=== PATIENT | female | born 1980 | race Caucasian/White ===

== ENCOUNTER 2020-08-08 22:26 | Emergency (ER) | payer BC, MEDICAID, SELFPAY ==
[2020-08-08 22:32] VITALS: BP 136/90; PULSE 90; RESP 16; TEMP 36.4; O2SAT 99; BMI 28.0
--- NOTE | 2020-08-08 22:52 | ED_ITS ---
HPI - Back Pain/Injury General: Chief Complaint: Back Pain/Injury Stated Complaint: mid/low back pain Time Seen by Provider: 08/08/20 22:39 History of Present Illness: HPI Narrative: Patient is a 39-year-old female who comes to the ED with epigastric and right upper quadrant abdominal pain with nausea and thoracic back pain. Patient is a past medical history of degenerative disc disease in the thoracic spine. She describes having worsening back pain for the past couple weeks. Pain in the epigastric and right upper quadrant of the abdomen started about 5 days ago. She says pain radiates up into the chest. She describes pain as sharp and she rates it a 10 out of 10. She states she is also had nausea and decreased appetite since onset of epigastric and right upper quadrant abdominal pain. Patient contacted her PCP about her back pain and they recommended she gets further evaluation at the ED. patient says she did start taking a steroid for her back pain a couple days ago. Patient says her PCP is currently in the process of setting up referrals to pain management clinic, neurosurgery and MRI of spine. Associated symptoms: Reports abdominal pain (RUQ and epigastric) and nausea; Deny chills, dysuria, fatigue, fever(s), hematuria or vomiting Review of Systems Const: Reports: change in appetite (decreased); Denies: fever(s), chills or fatigue Eyes: Denies: change in vision or eye discomfort ENMT: Denies: throat pain, odynophagia, nasal discharge or nasal congestion Card: Denies: chest pain, palpitations, edema, swelling of feet/ankles, dyspnea on exertion or orthopnea Resp: Denies: dyspnea, productive cough or non-productive cough GI: Reports: abdominal pain (RUQ and epigastric) and nausea; Denies: vomiting, diarrhea, constipation or hematochezia : Denies: flank pain, dysuria or hematuria Musc: Reports: back pain (thoracic back pain); Denies: neck pain or extremity swelling Skin/Breast: Denies: rash or new lesions Neuro: Denies: headache(s), numbness in extremities or weakness in extremities Physical Exam Const: COMMON NORMALS: patient oriented x3 and alert GENERAL APPEARANCE: cooperative; not comfortable (Patient appears uncomfortable and in pain.) HENMT: COMMON NORMALS: normocephalic HEAD & SCALP: normocephalic MOUTH: Normal oral and palatal mucosa present THROAT: posterior oropharynx normal and uvula midline Eye: COMMON NORMALS: Equal, round and reactive pupils present PUPIL: Yes Equal, round and reactive pupils present Neck/C-Spine: COMMON NORMALS: supple GENERAL: Yes normal visual inspection Resp: COMMON NORMALS: normal respiratory effort, No retractions, No use of accessory muscles and clear to auscultation bilaterally AUSCULTATION: clear to auscultation bilaterally Cardio: COMMON NORMALS: regular rate, regular rhythm, S1 normal heart sound present, S2 normal heart sound present, No gallops present (Cardio), No clicks present (Cardio), No murmurs present (Cardio) and Peripheral pulses 2+ throughout RATE: regular rate RHYTHM: regular rhythm HEART SOUNDS: S1 normal heart sound present and S2 normal heart sound present PERIPHERAL PULSES: Peripheral pulses 2+ throughout GI: COMMON NORMALS: Normal to inspection, nondistended, normoactive bowel sounds present, Soft to palpation and no masses PALPATION: Yes Soft to palpation and Yes Tenderness to palpation present (GI) Details: RUQ (positive sears sign) and other (Epigastric tenderness) : COMMON NORMALS: Yes no CVA tenderness BLADDER/KIDNEY EXAM: Yes no CVA tenderness Back/Pelvis: COMMON NORMALS: no CVA tenderness THORACIC SPINE/UPPER BACK: Yes thoracic spinal tenderness and Yes paraspinal muscle tenderness Extremity: COMMON NORMALS: normal to inspection and no pedal edema Neuro: COMMON NORMALS: patient oriented x3 and moves all extremities SENSORIUM/ORIENTATION: Yes alert Skin: GENERAL SKIN EXAM: dry skin Course Reevaluation(s): Reevaluation #1: Patient says the morphine helped her pain a little bit but now it is coming back again. Her nausea has greatly improved with Zofran. I told patient I will give her a dose of Dilaudid and see how that helps with pain. Patient agreed with plan. Time: 00:25 Reevaluation #2: I told patient about the positive H. pylori test. She said she is does not have any history of gastric ulcers and has never been tested or been diagnosed in the past with H. pylori. I told her I be putting her own a couple medications to treat H. pylori. Vital Signs: Vital signs: Vital Signs Temperature 98.3 F 08/09/20 02:41 Pulse Rate 78 11/06/20 02:41 Respiratory Rate 18 08/09/20 02:41 Blood Pressure 120/74 08/09/20 02:41 Pulse Oximetry 97 08/09/20 02:41 MDM - Back Pain/Injury MDM Narrative: Medical decision making narrative: Patient is a 39-year-old female who comes to the ED with epigastric pain and back pain. Patient says she has a history of thoracic back pain and is currently in the process of being set up with pain management clinic and MRI imaging of spine by her PCP. Exam shows patient that is healthy and does not appear in any acute distress. She did have some epigastric and right upper quadrant tenderness and positive Sears sign. Patient's white blood cell count 13.6, but she did start taking steroid couple days ago for her back. The rest of the CBC and CMP were unremarkable. Troponin negative and EKG showed normal sinus rhythm with no ST segment elevation or depression seen. Ultrasound of the gallbladder was normal. CT of thoracic spine showed no acute findings. Patient did have positive H. pylori test. Patient was discharged and diagnosed with epigastric abdominal pain Helicobacter pylori antibody test positive. She was sent with a prescription for clarithromycin, metronidazole, omeprazole and bismuth subsalicylate. She was also given a prescription of Zofran for any nausea. Follow-up with PCP in 7 to 10 days and return to ED precautions given. Patient understood and agreed with plan. Lab Data: Attestation: I reviewed the patient's lab results. Labs: Lab Results 08/08/20 08/08/20 08/08/20 Range/Units 22:52 23:45 23:45 WBC 13.6 H (4.0-10.0) 10^3/ uL RBC 4.59 (4.1-5.3) 10^6/u L Hgb 14.2 (11.5-15.3) g/dL Hct 43.4 (37.0-47.0) % MCV 94.6 (81-99) fL MCH 30.9 (28.0-34.0) pg MCHC 32.7 (30.0-36.0) g/dL RDW 13.5 (12.1-15.1) % Plt Count 426 H (130-400) 10^3/c mm MPV 9.4 (7.4-10.4) fL Neut % (Auto) 73.3 % Lymph % (Auto) 19.1 % Gladwin % (Auto) 6.7 % Eos % (Auto) 0.1 % Baso % (Auto) 0.2 % Neut # (Auto) 10.01 H (1.8-7.7) 10^3/u L Lymph # (Auto) 2.6 (0.8-4.8) 10^3/u L Gladwin # (Auto) 0.9 (0.2-0.9) 10^3/u L Eos # (Auto) 0.0 (0.0-0.8) 10^3/u L Baso # (Auto) 0.0 (0.0-0.1) 10^3/u L Nucleated RBC % (a uto) 0 % Nucleated RBCs # 0.0 /100WBC Sodium 137 (136-145) mmol/L Potassium 4.2 (3.5-5.1) mmol/L Chloride 104 (98-107) mmol/L Carbon Dioxide 21 L (22-29) mmol/L Anion Gap 16.2 (5-19) BUN 11 (6-20) mg/dL Creatinine 0.7 (0.5-0.9) mg/dL GFR Calculation 92.7 (90-130) mL/min Glucose 106 (65-115) mg/dL Calculated Osmolal ity 284 L (285-295) mOsm/k g Calcium 9.9 (8.5-10.5) mg/dL Total Bilirubin 0.2 (0.15-1.2) mg/dL AST 6 (0-32) U/L ALT 14 (0-33) U/L Alkaline Phosphata se 119 H (35-105) IU/L Troponin T 120 Min huang 6.00 (0-10) ng/L Delta Troponin T Not Reportable Total Protein 7.6 (6.6-8.7) g/dL Albumin 4.9 (3.5-5.2) g/dL Globulin 2.7 (1.3-4.6) g/dL Lipase 37 (13-60) U/L HCG, Qual (Negative) H. pylori IgG Anti body (Negative) 08/08/20 08/09/20 Range/Units 23:57 00:25 WBC (4.0-10.0) 10^3/ uL RBC (4.1-5.3) 10^6/u L Hgb (11.5-15.3) g/dL Hct (37.0-47.0) % MCV (81-99) fL MCH (28.0-34.0) pg MCHC (30.0-36.0) g/dL RDW (12.1-15.1) % Plt Count (130-400) 10^3/c mm MPV (7.4-10.4) fL Neut % (Auto) % Lymph % (Auto) % Gladwin % (Auto) % Eos % (Auto) % Baso % (Auto) % Neut # (Auto) (1.8-7.7) 10^3/u L Lymph # (Auto) (0.8-4.8) 10^3/u L Gladwin # (Auto) (0.2-0.9) 10^3/u L Eos # (Auto) (0.0-0.8) 10^3/u L Baso # (Auto) (0.0-0.1) 10^3/u L Nucleated RBC % (a uto) % Nucleated RBCs # /100WBC Sodium (136-145) mmol/L Potassium (3.5-5.1) mmol/L Chloride (98-107) mmol/L Carbon Dioxide (22-29) mmol/L Anion Gap (5-19) BUN (6-20) mg/dL Creatinine (0.5-0.9) mg/dL GFR Calculation (90-130) mL/min Glucose (65-115) mg/dL Calculated Osmolal ity (285-295) mOsm/k g Calcium (8.5-10.5) mg/dL Total Bilirubin (0.15-1.2) mg/dL AST (0-32) U/L ALT (0-33) U/L Alkaline Phosphata se (35-105) IU/L Troponin T 120 Min huang (0-10) ng/L Delta Troponin T Total Protein (6.6-8.7) g/dL Albumin (3.5-5.2) g/dL Globulin (1.3-4.6) g/dL Lipase (13-60) U/L HCG, Qual Negative (Negative) H. pylori IgG Anti body Positive H (Negative) Imaging Data^: US: Attestation: I personally reviewed and interpreted this imaging study as follows: Radiologist's impression: Ultrasound gallbladder prelim report?bladder wall normal with no stones seen. Common bile duct normal. Other CT: Attestation: I personally reviewed and interpreted this imaging study as follows: Radiologist's impression: [facility] [address] [place] [address] CT Scan Report Signed Patient: Smitha Gallagher Unit #: [id number] : 1980 Age/Sex: 39 / F ADM Date: 08/08/20 Loc: ER Room/Bed: Attending Dr: Ordering Provider/Ordering MD: Simone House Date of Service: 08/09/20 Procedure(s): CT thoracic spin wo con* [id number] Accession Number(s): [id number] Report Number: [id number] PROCEDURE INFORMATION: Exam: CT Thoracic Spine Without Contrast Exam date and time: 08/09/2020 12:14 AM Age: 39 years old Clinical indication: Pain in thoracic spine; Additional info: Thoracic back pain TECHNIQUE: Imaging protocol: Computed tomography images of the thoracic spine without contrast. Radiation optimization: All CT scans at this facility use at least one of these dose optimization techniques: automated exposure control; mA and/or kV adjustment per patient size (includes targeted exams where dose is matched to clinical indication); or iterative reconstruction. COMPARISON: MRI Thoracic Spine w/o* [id number] 01/18/2019 4:50 PM RADIATION DOSE METRICS: Total DLP (mGy-cm): 2077.41 FINDINGS: No acute fracture. No canal stenosis. Normal alignment. CT/CT thoracic spin wo con* [id number] IMPRESSION: No acute abnormality is seen. Radiation Dose CTDIVOL = (mGy): DLP = 2077.41 (mGy-cm) Dictated By: Gallito Carpenter MD Signed By: Gallito Carpenter MD Signed Date/Time: 03/23 DD/ 4 EKG Data^: EKG 1: Attestation: I personally reviewed and interpreted this EKG as follows: EKG interpretation date: 08/09/20 Interpretation: Normal sinus rhythm, 67 bpm, no ST segment elevation or depression seen. Discharge Plan Discharge Patient Disposition: Home Clinical Impression: Helicobacter pylori antibody positive, Epigastric abdominal pain Back pain Qualifiers: Back pain location: back pain in unspecified location Chronicity: unspecified Back pain laterality: bilateral Qualified Code(s): M54.9 - Dorsalgia, unspecified Condition: Stable Prescriptions: New bismuth subsalicylate 525 mg/15 mL suspension 525 mg PO BID 10 Days Qty: 236 RF: 0 clarithromycin 500 mg tablet 500 mg PO BID 10 Days Qty: 20 RF: 0 metronidazole 500 mg tablet 500 mg PO BID 10 Days Qty: 20 RF: 0 omeprazole 20 mg capsule,delayed release(DR/EC) 20 mg PO BID 10 Days Qty: 20 RF: 0 Zofran 4 mg tablet 4 mg PO Q8H Qty: 20 RF: 0 Discharge Orders: Discharge Order (Routine); Ordered 08/09/20 Ordered By: Simone House Referrals: La Nena Carmona FNP [Primary Care Provider] - Discharge Diet: Advance as tolerated Discharge Activity: Increase activity as tolerated Patient Instructions: Helicobacter Pylori (ED), Back Pain (ED) Activity Restrictions/Additional Instructions: Follow-up with medical provider as directed. Take medications as prescribed. Return to the ER or your medical provider if condition worsens. Please read and understand discharge instructions. If any questions, please ask. Discharge Date/Time: 08/09/20 02:43 Coding Level of Care Code ED Client Relationship Manager for Lexis Fwd Exam Comprehensive
--- NOTE | 2020-08-08 22:52 | US_ITS ---
WS: [id number] ULTRASOUND ABDOMEN LIMITED CLINICAL INFORMATION: RUQ tenderness, N and decreased appetite COMPARISON: None. FINDINGS: Liver Size: Upper limits of normal Craniocaudal length: 16.8 cm. Echogenicity: Normal. Surface nodularity: None. Mass (size and location): None. Bile ducts Intrahepatic ducts: Normal. Common bile duct diameter: 0.4 cm. Gallbladder Normal. Gallstones: None. Gallbladder sludge: None. Gallbladder wall thickening: None. Pericholecystic fluid: None. Sonographic Sears sign: Absent. Pancreas Normal as visualized. Right kidney: Normal. Hydronephrosis: None. Size: 10.8 cm x 4.2 cm x 4.0 cm. Abdominal aorta and IVC Visualized portions are normal. Ascites: None. US/US gall bladder [id number] IMPRESSION: 1. Liver size upper limits of normal measuring 16.8 cm 2. Normal gallbladder and Normal common bile duct. 3. No hydronephrosis in right kidney.
--- NOTE | 2020-08-08 22:55 | ECG_ITS ---
[facility] Test Date: 2020-08-08 Pat Name: Smitha Gallagher Department: Room: Gender: Female Advertising Sales Manager: : 1980 Requested By: Simone House Order Number: [id number] Toi MD: PHILIP STEELE Measurements Intervals [place] Rate: 67 P: 49 [place]: 140 QRS: 51 QRSD: 93 T: 35 QT: 384 QTc: 406 Interpretive Statements SINUS RHYTHM POSSIBLE RIGHT VENTRICULAR CONDUCTION DELAY [RSR (QR) IN V1/V2] No previous ECG available for comparison Electronically Signed On 08-09-2020 19:29:06 PROJECTION CAMERA OPERATOR by PHILIP STEELE [id number]
[2020-08-08 23:09] VITALS: BP 136/88; PULSE 86; RESP 20; O2SAT 96
[2020-08-08 23:17] VITALS: RESP 20; O2SAT 96
[2020-08-08] MEDS: ondansetron 2 mg/ML SDV 2 mL 4 MG IVP (23:17)
[2020-08-08] MEDS: morphine 4 mg/mL SDV 1 mL IVP (23:17)
[2020-08-08] MEDS: sodium chloride 0.9% 1,000 ML 999 ML IV (23:18)
[2020-08-09 00:09] LABS: Basophils % 0.2 %; Eosinophils % 0.1 %; Hematocrit 43.4 % (37.0-47.0); Hemoglobin 14.2 g/dL (11.5-15.3); Lymphocytes # 2.6 10^3/uL (0.8-4.8); Lymphocytes % 19.1 %; Mean Corpuscular HGB Conc 32.7 g/dL (30.0-36.0); Mean Corpuscular Hemoglobin 30.9 pg (28.0-34.0); Mean Corpuscular Volume 94.6 fL (81-99); Mean Platelet Volume 9.4 fL (7.4-10.4); Monocytes # 0.9 10^3/uL (0.2-0.9); Monocytes % 6.7 %; Neutrophils # 10.01 10^3/uL (1.8-7.7); Neutrophils % 73.3 %; Nucleated Red Blood Cells % 0 %; Platelet Count 426 10^3/cmm (130-400); Red Blood Count 4.59 10^6/uL (4.1-5.3); Red Cell Distribution Width 13.5 % (12.1-15.1); White Blood Count 13.6 10^3/uL (4.0-10.0)
--- NOTE | 2020-08-09 00:11 | CTR_ITS ---
PROCEDURE INFORMATION: Exam: CT Thoracic Spine Without Contrast Exam date and time: 08/09/2020 12:14 AM Age: 39 years old Clinical indication: Pain in thoracic spine; Additional info: Thoracic back pain TECHNIQUE: Imaging protocol: Computed tomography images of the thoracic spine without contrast. Radiation optimization: All CT scans at this facility use at least one of these dose optimization techniques: automated exposure control; mA and/or kV adjustment per patient size (includes targeted exams where dose is matched to clinical indication); or iterative reconstruction. COMPARISON: MRI Thoracic Spine w/o* [id number] 01/18/2019 4:50 PM RADIATION DOSE METRICS: Total DLP (mGy-cm): 2077.41 FINDINGS: No acute fracture. No canal stenosis. Normal alignment. CT/CT thoracic spin wo con* [id number] IMPRESSION: No acute abnormality is seen. Radiation Dose CTDIVOL = (mGy): DLP = 2077.41 (mGy-cm)
[2020-08-09 00:28] LABS: Alanine Aminotransferase 14 U/L (0-33); Albumin Level 4.9 g/dL (3.5-5.2); Alkaline Phosphatase 119 IU/L (35-105); Aspartate Amino Transferase 6 U/L (0-32); Blood Urea Nitrogen 11 mg/dL (6-20); Calcium 9.9 mg/dL (8.5-10.5); Carbon Dioxide 21 mmol/L (22-29); Chloride 104 mmol/L (98-107); Globulin 2.7 g/dL (1.3-4.6); Glomerular Filtration Rate 92.7 mL/min (90-130); Glucose 106 mg/dL (65-115); Lipase 37 U/L (13-60); Osmolality Calculated 284 mOsm/kg (285-295); Sodium 137 mmol/L (136-145); Total Bilirubin 0.2 mg/dL (0.15-1.2); Total Protein 7.6 g/dL (6.6-8.7)
[2020-08-09 00:33] LABS: Anion Gap 16.2 (5-19); Potassium 4.2 mmol/L (3.5-5.1)
[2020-08-09 00:35] LABS: HCG, Serum Qual Negative (Negative)
--- NOTE | 2020-08-09 00:55 | ECG_ITS ---
[facility] Test Date: 2020-08-09 Pat Name: Smitha Gallagher Department: Room: Gender: Female Director Of [employer]: : 1980 Requested By: Simone House Order Number: [id number] Toi MD: PHILIP STEELE Measurements Intervals [place] Rate: 79 P: 48 [place]: 160 QRS: 63 QRSD: 93 T: 52 QT: 383 QTc: 441 Interpretive Statements SINUS RHYTHM POSSIBLE RIGHT VENTRICULAR CONDUCTION DELAY [RSR (QR) IN V1/V2] Compared to ECG 08/08/2020 23:46:28 No significant changes Electronically Signed On 08-09-2020 19:33:30 COCOA MILLING MACHINE OPERATOR by PHILIP STEELE [id number]
[2020-08-09 01:47] VITALS: RESP 16; O2SAT 97
[2020-08-09] MEDS: HYDROmorphone 1 mg/mL INJ 1 mL 0.5 MG IVP (01:47)
[2020-08-09 02:07] LABS: H. Pylori IgG Antibody Positive (Negative)
[2020-08-09] MEDS: HYDROcodone-acetaminophen 7.5-325 mg Tablet 2 TAB PO (02:31)
[2020-08-09 02:41] VITALS: BP 120/74; PULSE 78; RESP 18; TEMP 36.8; O2SAT 97
== END 2020-08-09 02:43 | disposition home or self-care (01) ==
PROVIDERS: Emergency Provider Physician Assistant; PCP Nurse Practitioner Family
DX: A04.8 Other specified bacterial intestinal infections (principal); M54.9 Dorsalgia, unspecified
CPT/HCPCS: 12345; 36415; 72128; 76705; 80053; 83690; 84484; 84703; 85025; 86677; 87040; 93005; 96361; 96374; 96375; 99282; 99284; J1170; J2270; J2405; J7030

== ENCOUNTER → 2020-08-27 09:55 | Outpatient (BNVA) | payer BC, MEDICAID, SELFPAY | PROVIDERS: PCP Nurse Practitioner Family; Referring Provider Nurse Practitioner Family; Visit Provider Anesthesiology Pain Medicine | DX: M51.17 Intervertebral disc disorders with radiculopathy, lumbosacral region (principal); M54.9 Dorsalgia, unspecified; F17.210 Nicotine dependence, cigarettes, uncomplicated | CPT/HCPCS: 99203 ==

== ENCOUNTER 2024-07-23 19:41 | Emergency (ER) | payer BC, MEDICAID, SELFPAY ==
[2024-07-23 19:43] VITALS: BP 135/77; PULSE 87; TEMP 36.7; O2SAT 100; BMI 27.4
--- NOTE | 2024-07-23 20:08 | ED_ITS ---
HPI - Extremity Problem General: Chief complaint: Extremity Injury, Upper Stated complaint: left wrist/ hand injury Time Seen by Provider: 07/23/24 20:07 History of Present Illness: 43-year-old female comes in today with p ain and tenderness to the left wrist. Patient denies any fall or injury. Patient does report doing some increased yard work before the pain started. Patient has been using a Velcro splint for comfort. Related Data Previous Rx's Medication Instructions Recorded ondansetron HCl 4 mg tablet 4 mg PO Q8H #20 tabs 08/09/20 (Zofran) gabapentin 100 mg capsule 100 mg PO BID pain #60 caps 08/27/20 diclofenac sodium 75 mg 75 mg PO BID #20 tabs 07/23/24 tablet,delayed release prednisone 20 mg tablet 20 mg PO BID 5 days #10 tabs 07/23/24 Allergies Allergy/AdvReac Type Severity Reaction Status Date / Time No Known Allergies Allergy Verified 07/23/24 19:47 Review of Systems General: Reports: 10 or more systems reviewed and unremarkable except in HPI and below PFSH ED PFSH: Social History (Updated 08/27/20 @ 10:27 by Carole Howe LPN) Smoking and tobacco/nicotine status: current every day tobacco/nicotine user cigarettes Packs smoked per day: 0.5 Quit status (tobacco/nicotine): considering quitting Alcohol intake: never Substance/Drug Use: never Physical Exam Const: COMMON NORMALS: alert HENMT: COMMON NORMALS: normocephalic HEAD & SCALP: normocephalic Neck/C-Spine: COMMON NORMALS: full ROM Chest: COMMONS NORMALS: normal inspection of the chest Resp: COMMON NORMALS: normal respiratory effort Cardio: COMMON NORMALS: regular rate RATE: regular rate Back/Pelvis: COMMON NORMALS: thoracic and lumbar spine normal to inspection Extremity: LEFT UPPER EXTREMITY: Yes wrist (Mild swelling and tenderness to the joint line of the left wrist.) Neuro: SENSORIUM/ORIENTATION: Yes alert Skin: COMMON NORMALS: turgor normal GENERAL SKIN EXAM: turgor normal Course Vital Signs: Vital signs: Vital Signs Temperature 98.0 F 07/23/24 19:43 Pulse Rate 87 07/23/24 19:43 Blood Pressure 135/77 07/23/24 19:43 Pulse Oximetry 100 07/23/24 19:43 Oxygen Delivery Me thod Room Air 07/23/24 19:43 MDM - Extremity (Nontraumatic) Medical Decision Making 43-year-old female comes in today for complaints of left wrist pain. On exam patient has some mild swelling and tenderness along the joint line. Cap refill and sensation is normal distally. Differential diagnosis includes but not limited to fracture, strain, tendinitis. X-ray was unremarkable without any signs of obvious fracture or dislocation. Reviewed exam with patient with recommendation for treatment and follow-up. Patient reported understanding agreed to plan. XR interpretation done by ED provider, pending radiology final review Discharge Plan Discharge Patient Disposition: Home Clinical Impression: Left wrist tendinitis Condition: Stable Prescriptions: New prednisone 20 mg tablet 20 mg PO BID 5 Days Qty: 10 0RF diclofenac sodium 75 mg tablet,delayed release (DR/EC) 75 mg PO BID Qty: 20 0RF No Action gabapentin 100 mg capsule 100 mg PO BID Qty: 60 0RF Zofran 4 mg tablet 4 mg PO Q8H Qty: 20 0RF Discharge Orders: Discharge ED (Routine); Ordered 07/23/24 Ordered By: Tex Vides Referrals: La Nena Carmona FNP [Primary Care Provider] - Discharge Diet: Usual diet Discharge Activity: Increase activity as tolerated Patient Instructions: Tendinitis (ED) Activity Restrictions/Additional Instructions: Wear splint for comfort. Activity as tolerated. Drink plenty of water with medications. Follow-up with primary care in 1 week for recheck. Return to ED for new concerns. Coding Level of Care Code ED C++ Professor for Lexis French
--- NOTE | 2024-07-23 20:11 | XRR_ITS ---
PROCEDURE INFORMATION: Exam: XR Left Wrist Exam date and time: 07/23/2024 8:22 PM Age: 43 years old Clinical indication: Left; Patient HX: Lt wrist pain; No known injury TECHNIQUE: Imaging protocol: Radiologic exam of the left wrist. Views: 3 or more views. COMPARISON: No relevant prior studies available. FINDINGS: Bones/joints: Normal. Soft tissues: Normal. XR/XR wrist LT min 3V* [id number] IMPRESSION: No acute findings.
[2024-07-23 20:43] VITALS: BP 120/74; PULSE 68; O2SAT 99
[2024-07-23] MEDS: ketorolac 10 mg Tablet PO (20:43)
[2024-07-23] MEDS: predniSONE 20 mg Tablet 40 MG PO (20:43)
== END 2024-07-23 20:44 | disposition home or self-care (01) ==
PROVIDERS: Emergency Provider Nurse Practitioner Family; PCP Nurse Practitioner Family
DX: M77.9 Enthesopathy, unspecified (principal); F17.210 Nicotine dependence, cigarettes, uncomplicated
CPT/HCPCS: 73110; 99283; J7512